=== PATIENT | male | born 1970 | race Caucasian/White ===

== ENCOUNTER 2024-01-25 15:00 | Outpatient (RCR) | payer BC, OTHER, SELFPAY ==
--- NOTE | 2023-10-17 15:54 | HP.OTEVAL_ITS ---
Patient's Visit Information Visit Information Visit Information: SIXTO MELENDREZ II is a 53 year old M, referred to Occupational Therapy by CHRISTOS KOO, with a diagnosis of craniotomy. Date of Evaluation: 10/17/23 Occupational Therapist: Neelima Lawson Subjective Subjective: This 53 year old male present to [facility] s/p craniotomy with removal of x2 meningioma complete 10/10/23. Per pt symptoms of tumors started aug 18 noticing confusion unable to problem solve task and dif speaking. 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 Pt has a third meningioma that they are watching. pt is able to perform self care tasks on own. pt reports things take while for him to complete states language is difficult. pt lives with at home who is a nurse and works during the day however is currently off to help care for pt. pt main goal is to increase fluid movements of upper body. pt is R handed and denies noticable difference in strength on either side. ADLs Comments: denies difficulty with ADLs denies trouble with fastners Pain Head: Current Pain Intensity: 2 Objective Objective/Observation: pt arrives with slow gait to back therapy room. difficulty with verbal expression during eval able to assist as needed. ROM Shoulder: wfl Elbow: wfl Forearm: wfl Wrist: wfl CMC: wfl MP: wfl IP: wfl Radial Abduction: wfl Palmar Abduction: wfl Opposition: wfl MP: wfl PIP: wfl DIP: wfl ROM Comments: BUE AROM WFL Strength Shoulder: R 26 L 27 pounds Elbow: R 36 L 41 pounds Professional Poker Player: L 60 R 60 pounds Lateral Pinch: R 5 pounds L 12 pounds Tripod Pinch: R 12 pounds L 12 pounds Strength Comments: Pt with donte to R hand at [facility] which happened when he was 19 months so lateral pinch strength has always been affected per pt shoulder extension L and R 25 pounds Edema Other: no swelling noted at eval Sensation Sensation Comments: denies numbness or tingling anywwhere Movement Movement Comments: finger to nose assessment dysmetria noticed with over and under shooting 3/5 trials Cognitive Skills Follows Directions: Yes Nine Hole Peg Right: 32 sec Left: 30 sec In-Hand Manipulation Finger to Palm Translation: Normal - Right Palm to Finger Translation: Normal - Right Comments: reaction time delayed as evident by ball roll increased difficulty on L side Quick DASH-Disab of Arm,Shoulder& Hand Quick DASH Score: 31.8175 Goals Goal:: pt will demonstrate the ability to react to moving stimulus with appropriate reaction time 5/5 trial within 4 weeks pt will improve finger to nose assessment with accurate touching of nose and finger 5/5 trials with no under or over shooting within 4 weeks Goal:: pt will improve quick dash score to 25 or less in order to maximize overall QOL within 4 weeks Goal:: pt/ caregiver will demonstrate 100% accuracy in coordination and d ysmetria HEP by third session Rehabilitation Rehabilitation Potential: Good Anticipated Interventions Anticipated Interventions: A/AAROM/PROM, Fine Motor Coord/Darrell, Neuro Reeducation, Education re Diagnosis and Home Program Visit Plan Frequency: 2x /Week Duration: 4 Weeks General Plan: improve dysmetria reaction time HEP training TEXT: Thank you for the opportunity to evaluate your patient. For Medicare and Medicare HMO plans, please review the plan of care and approve it. It will need to be FAXED BACK to us at [phone] for Medicare purposes. Please let me know if there are questions or concerns regarding this plan of care. Physician Signature: Date:
--- NOTE | 2023-10-19 16:53 | HP.SP.EVAL ---
Visit History Visit Info Date of Eval: 10/19/23 Visit: 1 Senior Net Architect: ELIZABETH Sotelo Attending Doctor: CHRISTOS KOO Referring Doctor: CHRISTOS KOO Reason for Referral: BALANCE,WEAKNESS,APHAGIA DR SPANN FAX Previous speech therapy: Yes Results: Acute care evaluation - not further tx before dc Other Relevant Medical History/Diagnoses/Surgery: SIXTO MELENDREZ is a 53 year old male who presents to [facility] Speech Therapy for evaluation following removal of one temporal and one frontal lobe meningiomas s/p craniotomy on 10/10/23. He was accompanied to evaluation by his , Bree, who helped serve as historian. Sixto is also participating in OT and PT evaluations at this facility. Pt reporting he had a meningioma removed at 20 years old in occipital lobe - did receive radiation. Bree stating neurologist commented this is what has caused the others to grow. Currently, he has another smaller meningioma in the right hemisphere that the neurology is keeping an eye on. 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 Medications related to this diagnosis: Dexamethasone, Keppra, Pantoprazole, Citalopram, Farxiga, Glipizide, Lantus, Lovastatin, Metoprolol Smoking Status: Never smoker Diagnosis Diagnosis: Moderate Expressive Aphasia, Moderate Cognitive Disorder Pain Is pain an issue with your current prescribed condition?: No Personal Preferred language: Georgian CLQT CLQT CLQT Administered: Yes CLQT: Cognitive Linguistic Quick Test (CLQT) is a criterion - referenced assessment designed for adults between the ages of 18 and 89 with known or suspected neurological dysfuntions. The CLQT is to assess strength and weaknesses in five cognitive domains. Severity ratings are within normal limits, mild, moderate, severe deficits. The subtests are as follows: Date: 10/19/23 Attention Attention: Mild Memory Memory: Moderate Executive Functions Executive Functions: Moderate Language Language: Moderate Visuospatial Skills Visuospatial Skills: WNL Composite Severity Rating Composite Severity Rating: Mild Clock Drawing Severity Rating Clock Drawing Severity Rating: WNL CLQT Comments Cognitive Domain Scores: -: Cognitive Domain Scores ? Personal Facts (memory and language ability): 01/30 (WNL) ? Symbol Cancellation (nonlinguistic task of visual attention and perception, integrity of the upper/lower quadrants of the left/right visual ge): 06/05 (WNL) ? Confrontation Naming (aphasia, perseveration, verbosity): 04/03 (WNL) ? Clock Drawing (screening of all cognitive domains): (WNL, DID SELF CORRECT PLACEMENT OF HR/MIN HANDS) ? Story Retelling (memory and comprehension, arousal, attention, storage capacity, narrative skills): 09/01 (BELOW CRITERION CUT OFF) ? Symbol Trails (nonlinguistic task to assess planning, self-monitoring, working memory, and visual attention, and impulsivity): 01/01 (BELOW CRITERION CUT OFF) ? Generative Naming (word retrieval skills, perseveration): 07/03 (BELOW CRITERION CUT OFF -- MAX GENERATED 5 ANIMALS AND 0 WORDS STARTING WITH /M/) ? Design Memory (nonlinguistic task to assess visual discrimination & analysis, attention, and visual memory, impulsivity, perseveration): 10/28 (WNL) ? Mazes (planning, mental flexibility, self-monitoring, visual discrimination, and impulsivity): 01/30 (WNL) ? Design Generation (nonlinguistic task of creativity and mental flexibility): 08/07 (BELOW CRITERION CUT OFF) Severity Rating Domain Scores: Attention = 179/215 (MILD); Memory = 125/185 (MODERATE); Executive Functioning = 18/40 (MODERATE); Language = 22/37 (MODERATE); Visuospatial Skills = 84/105 (WNL); Clock Drawing = (WNL). Suspect memory deficits may be affected by the aphasia diagnosis. Pt answered 5/6 yes/no questions correctly following story recall task, however had severe difficulty with producing the words he wanted to when attempting to retell the story. He benefited from encouragement to stat whatever he could about the story and was able to verbalize 3 pertinent target words. Plan to target aphasia symptoms first and then target memory as needed. Bree and Sixto in agreeance with this discussion. During generative naming tasks, Max generated only 5 animals with the sixth one being perseverated and generated 0 words that start with /m/. Reference: Neuro-QoL instrument Radiation Oncology Patient Plan Plan Plan: Will recommend Max for weekly outpatient speech therapy intervention address moderate expressive aphasia and moderate cognitive deficits. Pt would benefit from circumlocution training, verb network training, semantic feature analysis training, and immediate feedback to identify instances of paraphasia. Pt would also benefit from cognitive training to improve executive functioning skills, along with memory pending progress with aphasia symptoms. Without skilled intervention Pt is at risk for communicating basic, medical, emergent, social wants & needs, and interacting with family/friends at home, during social interactions, and at work. Recommendations Treatment Warranted: Yes Treatment Warranted: Receptive/ Expressive Language and Cognition Progress Prognosis: Good Frequency Frequency: 1-2x /Week Duration: 3 Months Goals that are Established Determination:: Goals will be added/modified as deemed necessary and appropriate. Therapy will be discontinued when results of re-evaluation indicate therapy is no longer needed or lack of progress has been documented. Goal #1-5 Goal #1: Max will demonstrate use of word finding strategies to complete complex convergent, divergent, and sentence completion naming tasks with 80% acc given min verbal and visual cues across 3 measured opportunities. Goal #2: Max will generate 3 sentences when given a target verb following WHO+verb+WHAT structure with 83% acc (5/6) independently across 3 consecutively measured sessions. Goal #3: Max will generate 3 additional pieces of information answering WHERE/WHEN/WHY of one self-created WHO+verb+WHAT sentence with 2 of the 3 questions answered independently across 3 consecutively measured sessions. Goal #4: Max will complete complex problem solving, reasoning, and executive function tasks including but not limited to functional ADL (i.e. managing finances, safety awareness, paying bills, medication management, meal planning, using cellphone) with 3 or less verbal, logical, or visual cues across 3 measured sessions. Education Patient has Indicated that the Following Identified Educational Needs: None The Patient has indicated that they have no educational or learning abilities that may effect their care.: Yes Patient Instruction Patient Education: Diagnosis, Treatment Plan, Goals and Home Exercise Program Other Education: Provided a list of 10 Aphasia word finding strategies since Bree stated she is already beginning to implement some of these. Person Taught: Patient and Family
--- NOTE | 2023-10-22 14:58 | HP.PTEVAL_ITS ---
Patient's Visit Information Visit Information Visit Information: SIXTO MELENDREZ II is a 53 year old M referred to Physical Therapy by CHRISTOS KOO with a diagnosis of S/p Craniotomy. Date of Evaluation: 10/22/23 Physical Therapist: DAT Rubio Visit Plan Frequency: 2x /Week Duration: 2 Months Plan: 2X/ week for 8 weeks for gait training, balance training (foam and no foam, head turns, walking BW etc), functional strength with HEP Subjective Subjective: Pt was at work and he was done and he could not figure out the keyless entry code and he called his and drove home. He got home and his took him to ER and he had 3 meningiomas and 2 were taken off. His surgery was October 09. He is still a little unsteady. He does not notice any weakness going up steps. Somedays he feels good and somedays he doesn't. Today he does not feel right, feels kind of lightheaded. He is in speech and OT is picking him up for coordination. He works on things over his head with his job and will need his balance. Objective Objective: Gait: Pt walks with wider EUNICE, no trunk rotation and decrease arm swing LE MMT: R hip flex 13.8 and L 12.1 R knee ext 23.2 and L 21.2 R knee flex 15.6 and L 13.1 R hip abd 11.8 and L 11.2 FGA: 11 CATSIB: 100/120 Patellar DTR: 2+/3 Standing heel and toe raises: able with UE support Sit to stand: Able on first attempt but he is a little unsteady when standing. Pt was walking and had the patient walk and look L and his body went R and therapist caught him from falling. Pt struggles with walking with head turns. Pt was able to garbage pick up man objects from the floor X 3 with no issues. Steps: up and down recip with 1 hand rail but was fatigued at the top of the stairs Balance/Special Test Scores Functional Gait Assessment Score: 11 % Disability: 63.3400 CATSIB Score (Max score 120 seconds): 100 Lower Extremity Functional Score: 33 Goals Goal 1:: I HEP Goal Time Frame: 6-8 Weeks Goal 2:: Increase balance (Catsib 100/120 at eval) Goal Time Frame: 6-8 Weeks Goal 3:: Be able to walk with horizontal and vertical head turns without veering or LOB Goal Time Frame: 6-8 Weeks Goal 4:: Be able to sit to stand X 10 in a row without the use of UE support and have complete unsupported balance Goal Time Frame: 6-8 Weeks Rehabilitation Potential Rehabilitation Potential: Good Anticipated Interventions Patient/Client Instruction: Educate patient on: Condition and Plan of Care For the Purpose of:: To improve muscle performance and motor function, To improve ability to perform ADL's, To increase tolerance to activity/condition/position, To improve performance and independence with ADL's, To decrease level of supervision to perform tasks, To improve ability of physical actions for home/community/work/leisure, To improve gait and locomotor functions, To improve health of tissue, To decrease soft tissue restriction, To increase flexibility/ROM, To improve balance and To improve safety with gait Therapeutic Exercise to Include: Strength training, Endurance training, Balance training, Body mechanics, Postural training, Flexibilty training, Gait and locomotor training, Neuromotor development, Active ROM and Dynamic Lumbar Stabilization For the Purpose of:: To decrease pain, To improve muscle performance and motor function, To improve ability to perform ADL's, To increase tolerance to activity/condition/position, To improve performance and independence with ADL's, To decrease level of supervision to perform tasks, To improve ability of physical actions for home/community/work/leisure, To improve gait and locomotor functions, To improve health of tissue, To decrease soft tissue restriction, To increase flexibility/ROM, To improve endurance, To improve balance and To improve safety with gait Functional Training to Include: Gait training For the Purpose of:: To improve gait and locomotor functions and To improve safety with gait Text: Thank you for the opportunity to evaluate your patient. For Medicare and Medicare HMO plans, please review the plan of care and approve it. It will need to be FAXED BACK to us at [phone] for Medicare purposes. For Medicare only, by signing this I certify the plan of care. Please let me know if there are questions or concerns regarding this plan of care. Physician Signature: Date:
--- NOTE | 2023-10-30 15:38 | HP.OT.NRP ---
Patient Information Patient Information: SIXTO MELENDREZ II was seen in my office for initial evaluation on 10/17/23. The following Plan of Care was established for this patient: POC Established Initial Frequency: 2x /Week Initial Duration: 4 Weeks Plan: discharge Anticipated Interventions Anticipated Interventions: A/AAROM/PROM, Fine Motor Coord/Darrell, Neuro Reeducation, Education re Diagnosis and Home Program Last Seen Last Seen: This patient was last seen in our office 10/30/23. Pertinent comments regarding their Occupational therapy will appear below: This male pt has progressed in hand eye coordination, dysmetria, fluidity of movements. pt is pleased with outcomes and has now met all OT goals. discharge this date pt in agreeance. pt reports 100% improvement since start of care. At this point I will be discontinuing this patient from occupational therapy. I would be happy to see this patient again in the future if found appropriate by the physician. Thank you! Neelima Lawson
--- NOTE | 2023-11-28 19:06 | HP.PTREVAL ---
Re-Evaluation Intro: CHRISTOS KOO, It has been my pleasure to treat SIXTO MELENDREZ II over the last 13 visits for S/p Craniotomy. Please see the progress note below for an update on the physical therapy plan of care! Subjective Subjective: No pain. No falls. He goes back to Dr at then end of the month Objective Objective/Function: CATSIB 120/120 Pt struggled with walking and turning to look behind him, walking and catching a ball and walking with vertical head turns Plan Plan Plan: ADD walking with looking behind him, picking up objects from shelf and turn to put on table and floor and other high functional work simulation activities. Add walking with vertical head turns and walking and tossing and catching a ball 2X/ week for 8 weeks for gait training, balance training (foam and no foam, head turns, walking BW etc), functional strength with HEP Balance/Gait/Functional tests Balance/Special Test Scores Functional Gait Assessment Score: 11 % Disability: 63.3400 CATSIB Score (Max score 120 seconds): 100 Lower Extremity Functional Score: 71 30 Second Chair Rise Test Seconds: 11 Goals Goals Goal 1:: I HEP Goal Time Frame: 6-8 Weeks Goal Progress: Goal Met Goal 2:: Increase balance (Catsib 100/120 at eval) Goal Time Frame: 6-8 Weeks Goal Progress: Goal Met Goal 3:: Be able to walk with horizontal and vertical head turns without veering or LOB Goal Time Frame: 6-8 Weeks Goal Progress: Progressing Goal 4:: Be able to sit to stand X 10 in a row without the use of UE support and have complete unsupported balance Goal Time Frame: 6-8 Weeks Goal Progress: Goal Met Goal 5:: Be able to walk and turn head to look behind him with no LOB 10/10 times Goal Time Frame: 4-6 Weeks Goal 6:: Be able to walk with tossing ball up overhead without veering Goal Time Frame: 4-6 Weeks Anticipated Interventions Anticipated Interventions Patient/Client Instruction: Educate patient on: Condition and Plan of Care For the Purpose of:: To improve muscle performance and motor function, To improve ability to perform ADL's, To increase tolerance to activity/condition/position, To improve performance and independence with ADL's, To decrease level of supervision to perform tasks, To improve ability of physical actions for home/community/work/leisure, To improve gait and locomotor functions, To improve health of tissue, To decrease soft tissue restriction, To increase flexibility/ROM, To improve balance and To improve safety with gait Therapeutic Exercise to Include: Strength training, Endurance training, Balance training, Body mechanics, Postural training, Flexibilty training, Gait and locomotor training, Neuromotor development, Active ROM and Dynamic Lumbar Stabilization For the Purpose of:: To decrease pain, To improve muscle performance and motor function, To improve ability to perform ADL's, To increase tolerance to activity/condition/position, To improve performance and independence with ADL's, To decrease level of supervision to perform tasks, To improve ability of physical actions for home/community/work/leisure, To improve gait and locomotor functions, To improve health of tissue, To decrease soft tissue restriction, To increase flexibility/ROM, To improve endurance, To improve balance and To improve safety with gait Functional Training to Include: Gait training For the Purpose of:: To improve gait and locomotor functions and To improve safety with gait Re-Evaluation Ending Re-evaluation ending: Please do not hesitate to contact me at [phone] by phone or if you have questions or concerns regarding this new plan of care! Sincerely, Scarlett Merrill, MPT
--- NOTE | 2023-12-24 15:40 | HP.PTDCSUM ---
Discharge Summary D/C summary: It has been my pleasure to treat SIXTO MELENDREZ II referred by CHRISTOS KOO, with the diagnosis of S/p Craniotomy for a total of 20 visit(s). Discharge Date: 12/24/23 Please see the following information for a summary of their discharge status. Subjective Subjective: Pt feels that he is doing a lot better. He feels that he is ready to be done with PT. He has a NEGRON when looking down for a long time. He will have to ask the neurologist. He feels that his balance is better and looking back behind him with walking is better.... he still has to be careful. He has no word on RTW. Overall Improvement % Improvement: 99 Objective Objective/Function: Pt is able to walk and catch a ball coming from behind him X 10 times on the R and X 10 times on the L without LOB He is able to walk with tossing a ball without LOB He is able to walk with horizontal and vertical head turns without LOB Goals Goal 1:: I HEP Goal Progress: Goal Met Goal 2:: Increase balance (Catsib 100/120 at eval) Goal Progress: Goal Met Goal 3:: Be able to walk with horizontal and vertical head turns without veering or LOB Goal Progress: Goal Met Goal 4:: Be able to sit to stand X 10 in a row without the use of UE support and have complete unsupported balance Goal Progress: Goal Met Goal 5:: Be able to walk and turn head to look behind him with no LOB 10/10 times Goal Progress: Goal Met Goal 6:: Be able to walk with tossing ball up overhead without veering Goal Progress: Goal Met Plan Plan: DC PT to HEP D/C Information Discharge Comments: DC PT to HEP d/c sentence: If there are questions or concerns regarding this patient's physical therapy, please feel free to call me at [phone]. Thank you for the referral of this patient. Sincerely, Scarlett Merrill, MPT Balance/Gait/Functional tests Balance/Special Test Scores Functional Gait Assessment Score: 11 % Disability: 63.3400 CATSIB Score (Max score 120 seconds): 100 Lower Extremity Functional Score: 80 30 Second Chair Rise Test Seconds: 11 Improvement % Improvement: 99
--- NOTE | 2023-12-31 09:48 | HP.SPREEV_ITS ---
Visit History Visit Info Date of Eval: 10/19/23 Visit: 19 Patient's Approved Number of Visits: 10 Vocational Nurse Lvn: ELIZABETH Sotelo Attending Doctor: CHRISTOS KOO Referring Doctor: CHRISTOS KOO Reason for Referral: BALANCE,WEAKNESS,APHAGIA DR SPANN FAX Previous speech therapy: Yes Results: Acute care evaluation - not further tx before dc Other Relevant Medical History/Diagnoses/Surgery: SIXTO MELENDREZ is a 53 year old male who presents to [facility] for evaluation following removal of one temporal and one frontal lobe meningiomas s/p craniotomy on 10/10/23. He was accompanied to evaluation by his , Bree, who helped serve as historian. Sixto is also participating in OT and PT evaluations at this facility. Pt reporting he had a meningioma removed at 20 years old in occipital lobe - did receive radiation. Bree stating neurologist commented this is what has caused the others to grow. Currently, he has another smaller meningioma in the right hemisphere that the neurology is keeping an eye on. 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 Medications related to this diagnosis: Dexamethasone, Keppra, Pantoprazole, Citalopram, Farxiga, Glipizide, Lantus, Lovastatin, Metoprolol Smoking Status: Never smoker Diagnosis Diagnosis: Moderate Expressive Aphasia, Moderate Cognitive Disorder Pain Is pain an issue with your current prescribed condition?: No Personal Preferred language: Greenlandic Previous/Current Goals Goals 1-5 Previous Goal #1: Max will demonstrate use of word finding strategies to complete complex convergent, divergent, and sentence completion naming tasks with 85% acc given min verbal and visual cues across 3 measured opportunities. Goal 1 Status: PROGRESSING: - Sixto completed divergent naming task when only given 1 min. to complete the task, with Pt stating 15, 10, and 7 items across three trials. Previous attempts at last re-evaluation Max named a max of 6 items in 1 min. - Sixto completed a convergent naming task where ST would provide four words and then Max provided the category with 81% acc (). - Sixto completed a word generation task via naming antonyms of a target word with 100%, naming synonyms of a target word with 66% acc improving to 92% when given multiple choice. Previous Goal #2: Sixto will generate 3 sentences when given a target verb following WHO+verb+WHAT structure with 83% acc (5/6) independently across 3 consecutively measured sessions. Goal 2 Status: GOAL MET: MEASURED SESSION 1: Max generated 5/6 parts of VNeST structure independently and benefited from min verbal and semantic cues to improve to 6/6 on first round of sentences. Pt reading the sentences back with 3 errors and was asked to repeat them. MEASURED SESSION 2: Tasked Max with creating a sentence about the picture scene using the WHO/WHAT/WHEN/WHERE/WHY VNeST structure. Started with creating 5 sentences about the picture scene with the WHO and WHAT parts with 100% acc independently with ST dictating. Pt creating a second set of 5 sentences with 80% acc (8/10) improving to 100% with min semantic cues. MEASURED SESSION 3: Tasked Max with creating a sentence about the picture scene using the WHO/WHAT/WHEN/WHERE/WHY VNeST structure. Started with creating 5 sentences about the picture scene with the WHO and WHAT parts with 100% acc (10/10) independently with ST dictating. Pt creating a second set of 5 sentences with 100% acc (10/10). Previous Goal #3: Max will generate 3 additional pieces of information answering WHERE/WHEN/WHY of one self-created WHO+verb+WHAT sentence with 3 of the 3 questions answered independently across 3 consecutively measured sessions. Goal 3 Status: PROGRESSING, BUT WILL MODIFY GOAL FOR NEXT PLAN OF CARE: MEASURED SESSION 1: Max generated 3 additional pieces of WHERE/WHEN/WHY with 0/3 independently and benefited from min-mod cues on that where was asking for a place and when was asking for a time to improve acc to 2/3. He benefited from max verbal, semantic, and phonemic cues to improve the 'why.' He benefited from mod verbal cues to add transition words when reading it back. He repeated the sentence out loud with errors 3x and smoothly with no errors 2x. MEASURED SESSION 2: Asked Pt to choose one sentence out of each set of 5 WHO and WHAT sentences to expand and add WHERE/WHEN/WHY which he completed with 66% acc (2/3) on first trial and 66% acc (2/3) on second trial. MEASURED SESSION 3: Asked Pt to choose one sentence out of each set of 5 WHO and WHAT sentences to expand and add WHERE/WHEN/WHY which he completed in writing with 100% acc (3/3) on first trial Previous Goal #4: Sixto will complete complex problem solving, reasoning, and executive function tasks including but not limited to functional ADL (i.e. managing finances, safety awareness, paying bills, medication management, meal planning, using cellphone) with 3 or less verbal, logical, or visual cues across 3 measured sessions. Goal 4 Status: PROGRESSING: - Sixto was given a deductive puzzle with 12 targets on filling in a kitchen shelf with groceries when given 9 clues [address] where they should go. Sixto completed the puzzle with 58% acc independently (7/12) and benefited from mod verbal and logical cues to improve acc to 100%. Pt required the full session to complete this task. - Sixto completed a map construction task where he was tasked to write 3-4 sentences on the path he would take to get from house # to house #. He completed 4 paths with a total of 6 verbal cues. On the 5th path, he benefited from ST writing while he spoke the direction where he needed only 1 verbal cue. CLQT CLQT CLQT Administered: Yes CLQT: Cognitive Linguistic Quick Test (CLQT) is a criterion - referenced assessment designed for adults between the ages of 18 and 89 with known or suspected neurological dysfuntions. The CLQT is to assess strength and weaknesses in five cognitive domains. Severity ratings are within normal limits, mild, moderate, severe deficits. The subtests are as follows: Date: 10/19/23 Attention Attention: Mild Memory Memory: Moderate Executive Functions Executive Functions: Moderate Language Language: Moderate Visuospatial Skills Visuospatial Skills: WNL Composite Severity Rating Composite Severity Rating: Mild Clock Drawing Severity Rating Clock Drawing Severity Rating: WNL CLQT Comments Cognitive Domain Scores: -: Cognitive Domain Scores ? Personal Facts (memory and language ability): 01/30 (WNL) ? Symbol Cancellation (nonlinguistic task of visual attention and perception, integrity of the upper/lower quadrants of the left/right visual ge): 06/05 (WNL) ? Confrontation Naming (aphasia, perseveration, verbosity): 04/03 (WNL) ? Clock Drawing (screening of all cognitive domains): (WNL, DID SELF CORRECT PLACEMENT OF HR/MIN HANDS) ? Story Retelling (memory and comprehension, arousal, attention, storage capacity, narrative skills): 09/01 (BELOW CRITERION CUT OFF) ? Symbol Trails (nonlinguistic task to assess planning, self-monitoring, working memory, and visual attention, and impulsivity): 01/01 (BELOW CRITERION CUT OFF) ? Generative Naming (word retrieval skills, perseveration): 07/03 (BELOW CRITERION CUT OFF -- MAX GENERATED 5 ANIMALS AND 0 WORDS STARTING WITH /M/) ? Design Memory (nonlinguistic task to assess visual discrimination & analysis, attention, and visual memory, impulsivity, perseveration): 10/28 (WNL) ? Mazes (planning, mental flexibility, self-monitoring, visual discrimination, and impulsivity): 01/30 (WNL) ? Design Generation (nonlinguistic task of creativity and mental flexibility): 08/07 (BELOW CRITERION CUT OFF) Severity Rating Domain Scores: Attention = 179/215 (MILD); Memory = 125/185 (MODERATE); Executive Functioning = 18/40 (MODERATE); Language = 22/37 (MODERATE); Visuospatial Skills = 84/105 (WNL); Clock Drawing = 13/13 (WNL). Suspect memory deficits may be affected by the aphasia diagnosis. Pt answered 5/6 yes/no questions correctly following story recall task, however had severe difficulty with producing the words he wanted to when attempting to retell the story. He benefited from encouragement to stat whatever he could about the story and was able to verbalize 3 pertinent target words. Plan to target aphasia symptoms first and then target memory as needed. Bree and Sixto in agreeance with this discussion. During generative naming tasks, Max generated only 5 animals with the sixth one being perseverated and generated 0 words that start with /m/. Reference: Neuro-QoL instrument Radiation Oncology Patient Plan Plan Plan: Will recommend Max for weekly outpatient speech therapy intervention address moderate expressive aphasia and moderate cognitive deficits. Pt would benefit from circumlocution training, verb network training, semantic feature analysis training, and immediate feedback to identify instances of paraphasia. Pt would also benefit from cognitive training to improve executive functioning skills, along with memory pending progress with aphasia symptoms. Without skilled intervention Pt is at risk for communicating basic, medical, emergent, social wants & needs, and interacting with family/friends at home, during social interactions, and at work. Recommendations Treatment Warranted: Yes Treatment Warranted: Receptive/ Expressive Language and Cognition Progress Prognosis: Good Frequency Frequency: 1-2x /Week Duration: 3 Months Goals that are Established Determination:: Goals will be added/modified as deemed necessary and appropriate. Therapy will be discontinued when results of re-evaluation indicate therapy is no longer needed or lack of progress has been documented. Goal #1-5 Goal #1: Max will demonstrate use of word finding strategies to complete complex word generation tasks such as convergent, divergent, and sentence completion naming tasks with 85% acc given min verbal and visual cues across 3 measured opportunities. Goal #2: Max will describe a picture scene via generating 10 sentences with an self chosen verb following WHO+verb+WHAT structure with 90% acc (27/30) independently across 3 consecutively measured sessions. Goal #3: Max will describe a picture scene via generating 3 additional pieces of information answering WHERE/WHEN/WHY for five of the 10 self-created WHO+verb+WHAT sentences with 3 of the 3 questions answered independently across 3 consecutively measured sessions. Goal #4: Max will complete complex problem solving, reasoning, and executive function tasks including but not limited to functional ADL (i.e. managing finances, safety awareness, paying bills, medication management, meal planning, using cellphone) with 2 or less verbal, logical, or visual cues across 3 measured sessions. Education Patient has Indicated that the Following Identified Educational Needs: None and Hearing/Vision/Speech Impaired The Patient has indicated that they have no educational or learning abilities that may effect their care.: Yes Patient Instruction Patient Education: Diagnosis, Treatment Plan, Goals and Home Exercise Program Other Education: Provided a list of 10 Aphasia word finding strategies since Bree stated she is already beginning to implement some of these. Person Taught: Patient and Family
== END 2024-01-25 19:00 | disposition home or self-care (01) ==
LOC: SP 15:00
PROVIDERS: PCP Nurse Practitioner Primary Care
DX: Z98.890 Other specified postprocedural states (principal); R47.01 Aphasia
CPT/HCPCS: 92507; 97110; 97129; 97130; 97162; 97165; 97530